=== PATIENT | female | born 1995 | race Caucasian/White ===

== ENCOUNTER 2016-08-03 08:50 | Inpatient (IN) | payer BC, OTHER ==
[2016-08-03] MEDS ORDERED: PRENA1 CHEW TA1.4 M1 PO (09:32)
[2016-08-03] MEDS ORDERED: ZANTAC 7575 M1 PO (09:33)
[2016-08-04 19:51] LABS: CORD BLOOD PH ARTERIAL 7.34 Units (7.18-7.38)
[2016-08-05 07:50] LABS: BASO % 0.2 % (0-2); EOS % 0.6 % (0-7); EOSINOPHIL ABSOLUTE COUNT 0.1 tho/cmm (0.0-0.7); HCT-HEMATOCRIT 34.3 % (34.0-49.0); HGB-HEMOGLOBIN 11.5 gm/dl (12.0-15.5); IMMATURE GRANULOCYTES ABSOLUTE 0.05 tho/cmm (0-0.03); IMMATURE GRANULOCYTES PERCENT 0.3 % (0-0.3); LYMPH % 18.5 % (20-45); LYMPH ABSOLUTE COUNT 2.8 tho/cmm (0.8-4.5); MCH (MEAN CORPUSCULAR HGB) 30.1 pg (28.0-32.0); MCHC MEAN CORPUSCULAR HGB CONC 33.5 % (32.0-36.0); MCV (MEAN CELL VOLUME) 89.8 fl (82.0-96.0); MEAN PLATELET VOLUME 13.5 cmc (9.4-12.4); MONO % 6.7 % (0-12); NEUTROPHIL ABSOLUTE COUNT 11.2 tho/cmm (1.6-8.0); NEUTROPHIL-AUTOMATED 11.2 tho/cmm (1.6-8.0); NEUTROPHILS % 73.7 % (40-80); PLATELET COUNT 155 tho/cmm (150-450); RED BLOOD COUNT 3.82 mil/cmm (4.00-5.20); RED CELL DISTRIBUTION WIDTH 14.8 % (12.4-16.4); WHITE BLOOD COUNT 15.1 tho/cmm (4.0-10.0)
[2016-08-05] MEDS ORDERED: IBUPROFEN800 M1 PO (10:58)
== END 2016-08-06 14:20 | DRG 775 ==
LOC: LDR 08:50 → OBGD 08-04 21:56
PROVIDERS: ADMIT Obstetrics & Gynecology
PROC: 10E0XZZ Delivery of Products of Conception, External Approach (ICD-10-PCS; principal; 2016-08-04)
PROC: 0KQM0ZZ Repair Perineum Muscle, Open Approach (ICD-10-PCS; principal; 2016-08-04)
DX: O41.1030 Infection of amniotic sac and membranes, unspecified, third trimester, not applicable or unspecified (principal); O69.81X0 Labor and delivery complicated by cord around neck, without compression, not applicable or unspecified; O70.1 Second degree perineal laceration during delivery; Z3A.37 37 weeks gestation of pregnancy; Z37.0 Single live birth; Z88.0 Allergy status to penicillin; Z87.891 Personal history of nicotine dependence
CPT/HCPCS: J1580; J2405; J2590